=== PATIENT | female | born 1985 | race Caucasian/White ===

== ENCOUNTER 2019-07-12 23:19 | Emergency (ER) | payer OTHER, SELFPAY ==
--- NOTE | 2019-07-12 23:25 | W.ED.GENAD ---
Discharge Plan Disposition Patient Disposition: HOME Condition: Improving Discharge Details Chief Complaint: GenMedical Clinical Impression: Urinary tract infection Primary Care Provider: Loren Kelly V ED Provider: Pablo Yanez Home Meds and New Rx's Prescriptions: New phenazopyridine [Pyridium] 100 mg tablet 100 mg PO TID 2 Days Qty: 6 RF: 0 cephalexin 500 mg capsule 500 mg PO TID 7 Days Qty: 21 RF: 0 No Action multivitamin 1 EACH capsule 1 tab PO QAM RF: 0 One-Per-Day [place]-3 1 EACH capsule,delayed release(DR/EC) 1 tab PO QAM RF: 0 turmeric root extract 500 MG capsule 1 tab PO QAM RF: 0 Discharge Instructions Instructions: Urinary Tract Infection in Women (ED) Additional Instructions: Return for any acute concern or worsening of condition. Take antibiotics as prescribed. Continue your regular medications. 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 Hours of increased urgency and frequency with burning of urination. History of previous UTI. She is otherwise healthy and in no acute distress. Exam is reassuring. Urinalysis obtained and consistent with acute cystitis. Will treat with Pyridium and Keflex. She is stable for outpatient management. Lab Data Lab results reviewed: Yes I reviewed the patient's lab results. Labs: Laboratory Results - last 24 hr 07/12/19 23:24 Urine Color Yellow Urine Clarity Cloudy Urine pH 5.5 Ur Specific [place] 1.020 Urine Protein 30 H Urine Ketones Trace H Urine Blood Moderate H Urine Nitrite Positive H Urine Bilirubin Negative Urine Urobilinogen 0.2 Ur Leukocyte Esterase Small H Urine RBC 10-20 H Urine WBC >50 Ur Epithelial Cells Many Urine Crystals Negative Urine Bacteria Packed Urine Casts Negative Urine Mucus Negative Ur Culture Indicated? Yes Urine Glucose Negative HPI General Mode of arrival: ambulatory. Date/Time Provider Initiated Documentation: 07/12/19 23:20. Limitations to Documentation: no limitations. Information obtained by: patient. History of Present Illness 34 year old F presents to the emergency department with the chief complaint of Burning and urgency with urination, described as mild, Quality is described as dull, and is localized to the abdomen and pelvis. Patient reports no radiation. Patient started experiencing this hour(s) and it has been constant. No relieving factors improve symptom(s), No exacerbating factors reported . Patient notes denies fever/chills and nausea/vomiting. Related Data Home Medications Medication Instructions Recorded Confirmed One-Per-Day [place]-3 1 tab PO QAM 03/15/15 07/12/19 multivitamin 1 tab PO QAM 03/15/15 07/12/19 turmeric root extract 1 tab PO QAM 03/15/15 07/12/19 cephalexin 500 mg PO TID 7 Days #21 cap 07/12/19 phenazopyridine [Pyridium] 100 mg PO TID 2 Days #6 tab 07/12/19 Previous Rx's Medication Instructions Recorded cephalexin 500 mg PO TID 7 Days #21 cap 07/12/19 phenazopyridine [Pyridium] 100 mg PO TID 2 Days #6 tab 07/12/19 Allergies Allergy/AdvReac Type Severity Reaction Status Date / Time acyclovir AdvReac Intermediate Metallic Unverified 04/12/18 18:55 taste, intense dry mouth codeine AdvReac Intermediate vomiting Unverified 04/12/18 18:55 hydrocodone bitartrate AdvReac Intermediate vomiting Unverified 04/12/18 18:55 [From Vicodin] Sulfa (Sulfonamide AdvReac Intermediate Nausea Unverified 04/12/18 18:55 Antibiotics) Review of Systems Review of Systems Narrative: No vomiting, no back pain, no fever. Normal menses. 5 systems reviewed and otherwise negative PFSH Family History Father Essential hypertension Hyperlipidemia Social History Smoking/Tobacco Use Status: Current every day Tobacco Type: cigarettes Alcohol Intake: never Drug use: Never Substance use type: does not use Do you feel safe at home: Yes Do you feel safe in your relationship?: Yes Exam Narrative Exam Narrative: GEN: awake, alert, oriented 3. Pleasant, well groomed, interactive. HEAD: Normocephalic, atraumatic EYES: PERRL, EOMI NECK: Full ROM, no JUDY, no menigismus CHEST/RESP: Nontender, clear to auscultation bilateral, no wheeze/rhonchi/rales CARDIOVASCULAR: RRR, no murmur, rub ho. 2+ Rad pulse bilateral ABDOMEN: Soft, nontender, no mass. +Bowel sounds EXT: Full ROM, no edema, no rash Neuro: Grossly normal neurologic exam, conversant, interactive. Psych: Speech fluent, thoughts congruent, affect normal
[2019-07-12 23:26] VITALS: BP 120/47; PULSE 84; RESP 16; TEMP 36.7; O2SAT 96
[2019-07-12 23:29] LABS: Bilirubin Negative (Negative); Blood Moderate (Negative); Clarity Cloudy (Clear); Glucose Negative (Negative); Ketones Trace mg/dL (Negative); Leukocyte Esterase Small (Negative); Nitrite Positive (Negative); Urobilinogen 0.2 EU/dL (Up TO 0.2); pH 5.5 (5-8)
[2019-07-12 23:34] LABS: Bacteria Packed HPF (Negative); C & S Indicated? Yes; Casts Negative LPF (Negative); Crystals Negative HPF (Negative); Epithelial Cells Many HPF (Negative); Mucus Negative (Negative); WBC >50 HPF (0-5)
[2019-07-12] MEDS: Cephalexin 500 MG CAP, 4 CAPS/BTL PO (23:44)
[2019-07-12] MEDS: Phenazopyridine 100 MG TAB, 2 TABS/BTL PO (23:44)
== END 2019-07-12 23:45 | disposition home or self-care (01) ==
PROVIDERS: Emergency Provider Emergency Medicine; PCP Family Medicine
DX: N39.0 Urinary tract infection, site not specified (principal); B96.20 Unspecified Escherichia coli [E. coli] as the cause of diseases classified elsewhere
CPT/HCPCS: 87077; 99283; 81003; 81015; 87086; 87186

== ENCOUNTER 2020-11-19 11:08 | Outpatient (REF) | payer OTHER, SELFPAY ==
--- NOTE | 2020-11-19 10:00 | PAPFT_PTH ---
PATIENT: VICKY GARCÍA LOC: [facility] U#:[id number] AGE/SX: 35/F ROOM: RE11/19/[address]: LUIS EDUARDO Lutz : 1985 BED: DIS: 11/19/2020 SPEC #: [id number] RECD: 11/19/20 12:50 STATUS: SRAVAN REQ #: [id number] AGGIE: 11/19/20 10:[address]: Danielle Fontanez DEPT: [facility], 1928–1983 Cytology RECD BY: Anu Monique ENTERED: 11/19/20 12:50 SP TYPE: PAPFT OTHR DR: Loren Kelly V Tissues: 1 - CX/ENDOCX FOR PAP SMEARS Procedures: PAP THIN PREP/[facility] Screening HPV DNA PROBE Comments: [id number]
== END 2020-11-19 11:09 | disposition home or self-care (01) ==
LOC: LBN 11:08
PROVIDERS: PCP Family Medicine; Visit Provider Nurse Practitioner Family
DX: Z12.4 Encounter for screening for malignant neoplasm of cervix (principal); Z11.51 Encounter for screening for human papillomavirus (HPV); R87.810 Cervical high risk human papillomavirus (HPV) DNA test positive
CPT/HCPCS: 88142; 87624